=== PATIENT | female | born 1995 | race Caucasian/White ===

== ENCOUNTER 2019-08-20 15:31 | Emergency (ER) | payer BC, SELFPAY ==
[2019-08-20 15:45] VITALS: BP 117/73; PULSE 95; RESP 18; TEMP 37.5; O2SAT 100
--- NOTE | 2019-08-20 16:01 | ED_ITS ---
I attest that this documentation has been prepared under the direction and in the presence of Cristian Franklin MD. Carla Inman Natalie Nayan LOPEZ 08/20/19;16:20 HPI - Headache General Chief Complaint: Headache Stated Complaint: Migraine,Dr Note Time Seen by Provider: 08/20/19 16:02 Source: patient Mode of arrival: ambulatory Limitations: no limitations History of Present Illness HPI Narrative: The patient, who is a nonsmoker/ occ drinker, presents to the ED with hx of migraine x 1 day. Pt states that her employer will not allow her to come back to work unless cleared by a doctor. She states that she usually gets 2-3 migraines per week- better with OTC NSAID's; no fever, URI-sinusitis, TA/ TMJ pain , prior neuroimaging, related to food / menses, and states her pain is frontal. MD elicited complaint: migraine Onset (ago): day(s) (1) Location: frontal Context: other (hx of migraines) Treatments prior to arrival: migraine medication (excedrin) Related Data Allergies Allergy/AdvReac Type Severity Reaction Status Date / Time No Known Allergies Allergy Verified 08/20/19 15:46 Review of Systems Review of Systems: Narrative: General/Constitutional: Denies: weight loss,fever Eyes: Denies: Redness,discharge Ears/Nose/Throat: Denies: Epistaxis,ear discharge Respiratory: Denies: Hemoptysis Gastrointestinal: Denies: Vomiting, Bleeding-rectal Skin: Denies: Lumps, eruption Neurologic: Denies: Focal Weakness,Sz Hematologic: Denies: Petechiae/Purpura Psychiatric: Denies: Suicidal ideation All Other Systems: Reviewed and Negative All systems reviewed & are unremarkable except as noted in HPI and below PMFSH Social History Social History Gender identity (if verbalized by the patient): Female Comments At time of signature, agree with nursing past medical, surgical, social and family history. There is no relevant family history pertinent to the presenting complaint. Exam Narrative: Exam Narrative: General Appearance: Well appearing, No distress EYE: PERRLA, Conjunctiva clear, EOMI Neurological: A&O x3, CN II-X intact Ears: External ear normal Psychiatric: Normal mood, Normal affect Course Vital Signs Vital signs: Vital Signs Temperature 99.5 F 08/20/19 15:45 Pulse Rate 95 08/20/19 15:45 Respiratory Rate 18 08/20/19 15:45 Blood Pressure 117/73 08/20/19 15:45 Pulse Oximetry 100 08/20/19 15:45 Temperature 99.5 F 08/20/19 15:45 Pulse Rate 95 08/20/19 15:45 Respiratory Rate 18 08/20/19 15:45 Blood Pressure 117/73 08/20/19 15:45 Pulse Oximetry 100 08/20/19 15:45 Discharge Plan Discharge Clinical Impression: Return to work evaluation, History of migraine Patient Disposition: Home, Self-Care Condition: Stable Prescriptions: New tramadol 50 mg tablet 50 mg PO Q6H PRN (Reason: pain) Qty: 15 RF: 1 Interventions: Discharge Disposition Last Done: 08/20/19 16:12 Follow-up/Referrals: PHYSICIAN,C.O.D. AUDIT CLERK [Primary Care Provider] - Stand Alone Forms: Work/School Release IP Discharge Date/Time: 08/20/19 16:15 I personally performed the services described in this documentation. All medical record entries made by the scribgirish were at my direction and in my presen
== END 2019-08-20 16:15 | disposition home or self-care (01) ==
PROVIDERS: Emergency Provider Emergency Medicine
DX: Z02.79 Encounter for issue of other medical certificate (principal); G43.909 Migraine, unspecified, not intractable, without status migrainosus
CPT/HCPCS: 99203; G0463

== ENCOUNTER 2023-08-31 22:03 | Emergency (ER) | payer SELFPAY ==
--- NOTE | ~2023-08-31 | XR_ITS ---
EXAMINATION: XR ankle RT min 3V INDICATION: Right ankle pain TECHNIQUE: Three views of the right ankle are obtained. COMPARISON: None available FINDINGS: No fracture, dislocation, or subluxation. The bones, soft tissues, and joint spaces are nor mal. IMPRESSION: 1. No acute osseous abnormality. Reviewed, dictated and finalized at location F.
--- NOTE | ~2023-08-31 | XR_ITS ---
EXAMINATION: XR foot RT min 3V DATE: 09/01/2023 00:58 INDICATION: Right foot injury. Fall down stairs. TECHNIQUE: 3 views of right foot were obtained. COMPARISON: None. FINDINGS: There is mild hallux valgus. No fracture. There is mild osteoarthritis of first metatarsoph alangeal joint. There is flattening of head of second metatarsal, consistent with osteonecrosis (Erick bridges's infraction). IMPRESSION: 1. Mild hallux valgus. 2. Mild osteoarthritis of first metatarsophalangeal joint. Reviewed, dictated and finalized at location E.
[2023-08-31 22:05] VITALS: BP 137/80; PULSE 87; RESP 20; TEMP 36.8; O2SAT 100
--- NOTE | 2023-09-01 00:35 | ED.LOWEXIN ---
HPI - Extremity Injury (Lower) General Chief Complaint: Extremity Injury, Lower Stated Complaint: ankle pain Time Seen by Provider: 09/01/23 00:05 Source: patient Mode of arrival: ambulatory Limitations: no limitations History of Present Illness HPI Narrative: patient is a 27-year-old female who presents the ED with report of right ankle and foot pain. Patient reports she tripped and fell down a set of concrete stairs outside of her house. She sustained abrasions to right lower leg, complains of pain to her right ankle and foot. Is able to ambulate, but has discomfort with this. Has not taken anything for pain. Denies any other injuries. Denies head injury or LOC. Tetanus unknown. Related Data Allergies Allergy/AdvReac Type Severity Reaction Status Date / Time No Known Allergies Allergy Verified 08/31/23 22:10 Review of Systems Review of Systems: CONSTITUTIONAL: Denies fever, chills, or sweats. MUSCULOSKELETAL: See HPI. NEUROLOGIC: Denies headache, dizziness, numbness, or weakness. All systems reviewed & are unremarkable except as noted in HPI and below PMFSH Past Medical History Medical History Anxiety Encounter to establish care Migraine headache Moderate major depression Family History Family History Father Hypertension Mother Depression Anxiety Social History Social History Smoking status: Never smoker Alcohol intake: current Drinks per week: 6 Alcohol use details: liquor/beer - 2-3 drinks 2 days a week Substance use: never Gender identity (if verbalized by the patient): Female Exam Narrative: GENERAL: Well appearing, obese with BMI of 32.6, non-toxic, in no acute distress. HEAD: Normocephalic, atraumatic. RESPIRATORY: Airway patent, respirations nonlabored. CARDIOVASCULAR: Regular rate and rhythm without murmurs, rubs, or gallops. Pedal pulses easily palpable MUSCULOSKELETAL: Moves all extremities. No gross deformities. Mild tenderness to palpation over R lateral malleolus extending over anterior ankle. No significant swelling. SKIN: Warm, dry, normal color. Large area of skin abrasion to R lower anterior jimenez, R anterior ankle, no active bleeding. No large wounds or lacerations. NEURO: A&O X3. Speech clear. PSYCHIATRIC: Appropriate mood and affect. Normal interaction. Course Vital Signs Vital signs: Vital Signs Temperature 98.3 F 08/31/23 22:05 Pulse Rate 87 08/31/23 22:05 Respiratory Rate 20 08/31/23 22:05 Blood Pressure 137/80 08/31/23 22:05 Pulse Oximetry 100 08/31/23 22:05 Oxygen Delivery Room Air 08/31/23 22:05 Temperature 98.3 F 08/31/23 22:05 Pulse Rate 87 08/31/23 22:05 Respiratory Rate 20 08/31/23 22:05 Blood Pressure 137/80 08/31/23 22:05 Pulse Oximetry 100 08/31/23 22:05 Oxygen Delivery Room Air 08/31/23 22:05 MDM - Extremity Injury (Lower) MDM Narrative Medical decision making narrative: Patient?s injury is consistent with musculoskeletal etiology. No signs of neurologic or vascular compromise on physical examination. Compartments are soft without signs of compartment syndrome. XR right ankle without osseous abnormality. X-ray of right foot interpreted by myself w/o evidence of fx. Pain is consistent with ankle sprain. Patient is felt to be stable for discharge home and further outpatient management and treatment. Given Patricio bandage in the ED. Wounds cleaned and bandaged. Tetanus updated. Offered crutches and patient declined. Discussed rice treatment, return precautions. D/C in stable condition. Medical Records Attestation: I reviewed the patient's medical records. Imaging Data Attestation: I personally reviewed and interpreted this imaging study as follows: My impression: XR R foot: Radiologist's impression:
[2023-09-01] MEDS: ACETAMINOPHEN 500 MG TABLET 1000 MG PO (00:36)
[2023-09-01] MEDS: IBUPROFEN 600 MG TABLET PO (00:36)
[2023-09-01] MEDS: TETANUS,DIPHTHERIA,AC PERTUSSIS ADULT (0.5 ML) BOOSTRIX IM (01:13)
== END 2023-09-01 01:28 | disposition home or self-care (01) ==
PROVIDERS: Emergency Provider Physician Assistant; PCP Nurse Practitioner Family
DX: S93.401A Sprain of unspecified ligament of right ankle, initial encounter (principal); S80.811A Abrasion, right lower leg, initial encounter; Z23 Encounter for immunization; F41.9 Anxiety disorder, unspecified; F32.9 Major depressive disorder, single episode, unspecified; W10.9XXA Fall (on) (from) unspecified stairs and steps, initial encounter
CPT/HCPCS: 73610; 73630; 90471; 90715; 99283; A9270

== ENCOUNTER 2023-11-30 00:53 | Emergency (ER) | payer SELFPAY ==
--- NOTE | ~2023-11-30 | XR_ITS ---
Portable chest x-ray Comparison: None Clinical History: Chest pain Findings: There is hazy bibasilar airspace disease. No definite pleural effusion. Cardiomediastinal silhouette is stable. Dextroscoliosis of the thoracic spine noted. Impression: Mild to moderate bibasilar pulmonary edema or atelectatic change. Correlate clinically for atypical i nfection. Reviewed, dictated and finalized at location . Impression: Mild to moderate bibasilar pulmonary edema or atelectatic change. Correlate cli nically for atypical infection.
[2023-11-30 00:59] VITALS: BP 119/88; PULSE 120; RESP 24; TEMP 36.6; O2SAT 97
--- NOTE | 2023-11-30 01:13 | ECG_ITS ---
Test Date: 2023-11-30 01:33:54 Measurements Intervals Romeo Rate: 118 P: 33 VA: 134 QRS: 17 QRSD: 74 T: 42 QT: 304 QTc: 427 Interpretive Statements SINUS TACHYCARDIA ABNORMAL RHYTHM ECG No previous ECG available for comparison Electronically Signed On 11-30-2023 07:28:38 CDT by Ap Contreras M.D.
[2023-11-30] MEDS: LORazepam INJ (*CRX) 2 MG/ML VIAL 1 MG IV PUSH (01:25)
--- NOTE | 2023-11-30 01:42 | ED.GENADULT ---
HPI - General Adult General Chief complaint: Anxiety Stated complaint: anxiety Time Seen by Provider: 11/30/23 01:08 History of Present Illness HPI narrative: This is a 28-year-old female with a history of anxiety presenting for anxiety attack. Patient found her boyfriend earlier tonight after he ate committed suicide suicide. This caused her to have anxiety attack with symptoms including nausea chest pain difficulty breathing perioral tingling. patient denies SI or HI. She has safe place to go tonight. Related Data Allergies Allergy/AdvReac Type Severity Reaction Status Date / Time No Known Allergies Allergy Verified 08/31/23 22:10 [facility], [facility] Past Medical History Medical History Anxiety Encounter to establish care Migraine headache Moderate major depression Family History Family History Father Hypertension Mother Depression Anxiety Social History Social History Smoking status: Never smoker Alcohol intake: current Drinks per week: 6 Alcohol use details: liquor/beer - 2-3 drinks 2 days a week Substance use: never Gender identity (if verbalized by the patient): Female Exam Narrative: APPEARANCE: No apparent distress. Head: atraumatic. EYES: EOMI, NOSE: Atraumatic NECK: Trachea midline RESPIRATORY: No increased rate of breathing , CTAB CARDIOVASCULAR: RRR, No peripheral edema ABDOMINAL: Non-distended MUSCULOSKELETAl: No obvious deformities NEURO: Alert. Moving 4/4 extremities SKIN:: Warm, dry. Normal color PSYCHIATRIC: Normal affect Course Vital Signs Vital signs: Vital Signs Temperature 97.8 F 11/30/23 00:59 Pulse Rate 120 H 11/30/23 00:59 Respiratory Rate H 11/30/23 00:59 Blood Pressure 119/88 11/30/23 00:59 Pulse Oximetry 97 11/30/23 00:59 Oxygen Delivery Room Air 11/30/23 00:59 Temperature 97.8 F 11/30/23 00:59 Pulse Rate 120 H 11/30/23 00:59 Respiratory Rate 24 H 11/30/23 00:59 Blood Pressure 119/88 11/30/23 00:59 Pulse Oximetry 97 11/30/23 00:59 Oxygen Delivery Room Air 11/30/23 00:59 Medical Decision Making MDM Narrative Medical decision making narrative: -Course: 28-year-old female presenting ED after finding her on after a committed suicide. Patient with multiple complaints related to anxiety Including chest tightness. Chest x-ray and EKG unremarkable. Patient given Ativan. No SI or HI. Patient is going to go home with her mom is going to keep an eye on her tonight. Patient given return precautions. -DDX includes but is not limited to: Anxiety adjustment disorder, PTSD -Co-morbidities complicating care: anxiety -Independent interpretation of studies: Independent EKG interpretation: Rhythm [sinus], Rate [118], [place] -[normal], [place] -[normal], QRS [narrow], QTC [normal], T waves -[negative for concerning inversions], ST Segments - [Negative for concerning elevations] Final interpretations: sinus tach -Interventions: 1 mg Ativan -Shared decision making / Disposition: discharge Vital Signs Vital Signs: Vital Signs Temperature 97.8 F 11/30/23 00:59 Pulse Rate 120 H 11/30/23 00:59 Respiratory Rate 24 H 11/30/23 00:59 Blood Pressure 119/88 11/30/23 00:59 Pulse Oximetry 97 11/30/23 00:59 Oxygen Delivery Room Air 11/30/23 00:59 Temperature 97.8 F 11/30/23 00:59 Pulse Rate 120 H 11/30/23 00:59 Respiratory Rate 24 H 11/30/23 00:59 Blood Pressure 119/88 11/30/23 00:59 Pulse Oximetry 97 11/30/23 00:59 Oxygen Delivery Room Air 11/30/23 00:59 Discharge Plan Discharge Clinical Impression: Anxiety, Acute post-traumatic stress disorder Patient Disposition: Home, Self-Care Condition: Stable Instructions: Antibiotic Form, Anxiety (ED) Additional Instructions: please follow-up with the therapist.
== END 2023-11-30 02:56 | disposition home or self-care (01) ==
PROVIDERS: Emergency Provider Emergency Medicine; PCP Nurse Practitioner Family
DX: F43.11 Post-traumatic stress disorder, acute (principal); F41.9 Anxiety disorder, unspecified
CPT/HCPCS: 71045; 93005; 96374; 99284; J2060

== ENCOUNTER 2024-03-13 18:07 | Emergency (ER) | payer SELFPAY ==
--- NOTE | 2024-03-13 20:07 | PC.NURSE ---
Patient was called out in waiting room area for a room; no answer
--- NOTE | 2024-03-13 20:26 | PC.NURSE ---
Patient again called for ED room; no answer.
== END 2024-03-13 20:26 | disposition left against medical advice (07) ==
PROVIDERS: PCP Nurse Practitioner Family
DX: Z53.21 Procedure and treatment not carried out due to patient leaving prior to being seen by health care provider (principal)
CPT/HCPCS: 99199